=== PATIENT | female | born 1980 | race Two or more races ===

== ENCOUNTER → 2021-07-08 | Day surgery (SDC) | payer OTHER ==
[~2021-07-08] VITALS: Ht 165.1 cm; Wt 88.5 kg
[2021-07-08 08:15] LABS: HCG (URINE) SCREEN NEGATIVE (NEGATIVE)
[2021-07-08 08:27] LABS: BASOPHIL 0.6 % (0-2); EOSINOPHIL 4.8 % (0-5); HCT 31.8 % (37.0-47.0); HGB 8.8 g/dl (12.5-16.0); LYMPHOCYTE 25.9 % (15-48); MCH 18.9 pg (25.0-31.0); MCHC 27.7 g/dL (32.0-36.0); MCV 68.4 fL (78.0-100.0); MPV 9.6 fL (6.0-9.5); NEUTROPHIL 60.9 % (41-80); NRBC 0; PLT 304 K/uL (150-400); RBC 4.65 M/uL (4.20-5.40); RDW 19.3 % (11.5-14.0); WBC 8.4 K/uL (4.0-10.5)
== END | disposition home or self-care (01) ==
LOC: FAS 07:50
PROVIDERS: Oral & Maxillofacial Surgery
DX: K02.9 Dental caries, unspecified (principal); K04.7 Periapical abscess without sinus
CPT/HCPCS: 36415; 84703; 85025; J1100; J1885; J2250; J2405; J2704; J7120